=== PATIENT | male | born 1975 | race Caucasian/White ===

== ENCOUNTER 2018-04-02 09:35 | Outpatient (CLI) | payer OTHER ==
--- NOTE | 2018-04-02 21:55 | MRI Report ---
EXAM: MRI LUMBAR SPINE WITHOUT CONTRAST. EXAM DATE: 04/02/2018 10:44 AM. CLINICAL HISTORY: Low back pain. COMPARISON: None. TECHNIQUE: Multiplanar, multisequence T1-weighted and fluid-sensitive sequences of the lumbar spine f rom T12 to S1 without contrast. Other: None. FINDINGS: Spinal Cord: The conus terminates at L1. The conus medullaris and cauda equina are unremarkable. Alignment: Generalized lumbar lordosis straightening. Bone Marrow: Five hfg-ujm-vmvpsav lumbar vertebral bodies are assumed. Vqcy-cs-jbemxuje degenerative endplate signal changes at L5-S1. Disk Levels/Facets: T12-L1: Unremarkable. L1-L2: Unremarkable. L2-L3: Unremarkable. L3-L4: Unremarkable. L4-L5: Mild degenerative disk disease. Minimal if any facet arthropathy. Shallow broad-based disk bul ge. No stenosis. L5-S1: Moderate degenerative disk disease. Minimal facet arthropathy. Shallow broad-based disk bulge accompanied by mild marginal spurring extending laterally into both neural foramina. Patent central c anal and lateral recesses. Edsq-uw-obqgtjjp bilateral degenerative foraminal stenosis. Musculature: Normal. No edema or fatty atrophy. Other: None. IMPRESSION: 1. Moderate degenerative disk disease at L5-S1. Broad-based bulge and marginal spurring but no centra l canal or lateral recess stenosis. Imen-of-seluisxy bilateral foraminal stenosis at this level is pr esent. 2. Mild degenerative changes but no stenosis at L4-L5. Comment: The following findings are so common in adults without low back pain that while we report th eir presence, they must be interpreted with caution and in the context of the clinical situation. (Re marisol Salazar et al, Spine 2001) Prevalence of findings in patients without low back pain: Disk degeneration (any evidence): 92% Disk desiccation/T2 signal loss: 83% Disk height loss: 56% Disk bulge: 64% Disk protrusion: 32% Annular tear/high intensity zone: 38% [facility] Referring Provider Line: [phone] SITE ID: [id number]
== END 2018-04-02 09:36 | disposition home or self-care (01) ==
LOC: DI 09:35
PROVIDERS: ATTEND General Practice
DX: M51.36 Other intervertebral disc degeneration, lumbar region (principal); M51.37 Other intervertebral disc degeneration, lumbosacral region; M48.07 Spinal stenosis, lumbosacral region
CPT/HCPCS: 72148

== ENCOUNTER 2018-05-13 10:27 | Outpatient (CLI) | payer OTHER | END 2018-05-13 10:28 | disposition home or self-care (01) | LOC: SC 10:27 | PROVIDERS: ATTEND Internal Medicine Pulmonary Disease | DX: G47.30 Sleep apnea, unspecified (principal); G47.10 Hypersomnia, unspecified; R06.83 Snoring; G47.8 Other sleep disorders | CPT/HCPCS: 99203; 99212 ==

== ENCOUNTER 2018-06-23 20:25 | Outpatient (CLI) | payer OTHER | END 2018-06-23 20:26 | disposition home or self-care (01) | LOC: SC 20:25 | PROVIDERS: ATTEND Internal Medicine Pulmonary Disease | DX: G47.61 Periodic limb movement disorder (principal) | CPT/HCPCS: 95810 ==

== ENCOUNTER 2018-07-22 14:08 | Outpatient (CLI) | payer OTHER | END 2018-07-22 14:09 | disposition home or self-care (01) | LOC: SC 14:08 | PROVIDERS: ATTEND Nurse Practitioner Family | DX: R06.83 Snoring (principal); G47.61 Periodic limb movement disorder | CPT/HCPCS: 99212; 99214 ==